=== PATIENT | male | born 1980 | race Caucasian/White ===

== ENCOUNTER 2025-04-03 20:42 | Emergency (ER) | payer OTHER, SELFPAY ==
[2025-04-03 20:44] VITALS: BP 174/104
[2025-04-03 21:08] LABS: Urine Character Clear (Clear)
[2025-04-03 21:20] LABS: Hematocrit 40.8 % (39.0-52.0); Hemoglobin 14.0 g/dL (13.0-18.0); Mean Corp Hgb Conc. 34.3 g/dL (33.0-37.0); Mean Corpuscular Volume 81.6 fL (80.0-94.0); Nucleated Red Blood Cells % 0 % (-); Red Cell Dist. Width 12.3 % (11.5-14.5)
[2025-04-03 21:27] LABS: ALT (SGPT) 34 U/L (0-50); AST (SGOT) 27 U/L (17-59); Albumin 4.8 g/dl (3.5-5.0); Alkaline Phosphatase 97 U/L (38-126); Blood Urea Nitrogen 16 mg/dl (9-20); Calcium 9.6 mg/dl (8.4-10.2); Carbon Dioxide 26 mmol/L (22-30); Chloride 101 mmol/L (98-107); Glucose 119 mg/dl (70-99); Potassium 4.1 mmol/L (3.5-5.1); Sodium 136 mmol/L (135-145); Total Protein 7.5 g/dl (6.3-8.2); eGFR > 60.00
[2025-04-03 21:55] LABS: Platelet Count 254 10^3/uL (130-400)
[2025-04-03 22:16] LABS: Urine Red Blood Cell 0-2 /HPF (0-2); Urine Squamous Cell 0-2 /LPF (Few); Urine White Cell 0-2 /HPF (0-5)
[2025-04-03 22:51] VITALS: BP 145/79; BMI 43.9
[2025-04-03] MEDS: TORADOL 15 MG IM (23:59)
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
== END 2025-04-04 01:19 | disposition home or self-care (01) ==
LOC: EMR 20:42
PROVIDERS: Emergency Medicine; EMERGENCY PHYSICIAN Student in an Organized Health Care Education/Training Program; FAMILY PHYSICIAN Family Medicine
DX: N13.2 Hydronephrosis with renal and ureteral calculous obstruction (principal); K43.9 Ventral hernia without obstruction or gangrene; R03.0 Elevated blood-pressure reading, without diagnosis of hypertension; Z96.649 Presence of unspecified artificial hip joint
CPT/HCPCS: 99284; 96372; 74176; 80053; 81003; 81015; 85025; 87086

== ENCOUNTER 2025-04-10 23:51 | Emergency (ER) | payer OTHER, SELFPAY ==
[2025-04-11 00:01] VITALS: BP 145/109
[2025-04-11] MEDS: NSS 1000 IV (01:46)
[2025-04-11] MEDS: TORADOL 15 MG IV (01:52)
[2025-04-11 02:02] LABS: Hematocrit 40.3 % (39.0-52.0); Hemoglobin 14.0 g/dL (13.0-18.0); Mean Corp Hgb Conc. 34.7 g/dL (33.0-37.0); Mean Corpuscular Volume 80.1 fL (80.0-94.0); Nucleated Red Blood Cells % 0 % (-); Platelet Count 284 10^3/uL (130-400); Red Cell Dist. Width 12.3 % (11.5-14.5); Urine Character Clear (Clear)
[2025-04-11 02:16] LABS: ALT (SGPT) 37 U/L (0-50); AST (SGOT) 30 U/L (17-59); Albumin 4.8 g/dl (3.5-5.0); Alkaline Phosphatase 103 U/L (38-126); Blood Urea Nitrogen 17 mg/dl (9-20); Calcium 9.5 mg/dl (8.4-10.2); Carbon Dioxide 27 mmol/L (22-30); Chloride 101 mmol/L (98-107); Glucose 121 mg/dl (70-99); Potassium 3.6 mmol/L (3.5-5.1); Sodium 137 mmol/L (135-145); Total Protein 7.3 g/dl (6.3-8.2); eGFR > 60.00
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
[2025-04-11] MEDS: MORPHINE SULFATE 4 MG IV (02:54)
[2025-04-11] MEDS: FLOMAX 0.4 MG PO (03:16)
[2025-04-11 03:34] VITALS: BP 180/78
[2025-04-11 03:55] LABS: Urine Red Blood Cell 0-2 /HPF (0-2); Urine Squamous Cell 0-2 /LPF (Few); Urine White Cell 0-2 /HPF (0-5)
== END 2025-04-11 03:37 | disposition home or self-care (01) ==
LOC: EMR 23:51
PROVIDERS: EMERGENCY PHYSICIAN Student in an Organized Health Care Education/Training Program; FAMILY PHYSICIAN Family Medicine
DX: N13.2 Hydronephrosis with renal and ureteral calculous obstruction (principal)
CPT/HCPCS: 96374; 96375; 99284; 74176; 80053; 81003; 81015; 85025

== ENCOUNTER 2025-04-17 17:21 | Emergency (ER) | payer OTHER, SELFPAY ==
[2025-04-17 17:29] VITALS: BP 134/86
[2025-04-17 18:03] LABS: Hematocrit 38.1 % (39.0-52.0); Hemoglobin 13.3 g/dL (13.0-18.0); Mean Corp Hgb Conc. 34.9 g/dL (33.0-37.0); Mean Corpuscular Volume 82.6 fL (80.0-94.0); Nucleated Red Blood Cells % 0 % (-); Platelet Count 250 10^3/uL (130-400); Red Cell Dist. Width 12.2 % (11.5-14.5)
[2025-04-17 18:18] LABS: ALT (SGPT) 33 U/L (0-50); AST (SGOT) 30 U/L (17-59); Albumin 4.3 g/dl (3.5-5.0); Alkaline Phosphatase 78 U/L (38-126); Blood Urea Nitrogen 12 mg/dl (9-20); Calcium 8.8 mg/dl (8.4-10.2); Carbon Dioxide 29 mmol/L (22-30); Chloride 102 mmol/L (98-107); Glucose 112 mg/dl (70-99); Potassium 3.8 mmol/L (3.5-5.1); Sodium 136 mmol/L (135-145); Total Protein 6.8 g/dl (6.3-8.2); eGFR > 60.00
[2025-04-17 18:28] LABS: Urine Character Bloody (Clear)
[2025-04-17 19:42] LABS: Urine Red Blood Cell >100 /HPF (0-2); Urine Squamous Cell 0-2 /LPF (Few)
[2025-04-17] MEDS: DILAUDID 0.5 MG IV (20:05)
[2025-04-17] MEDS: NSS 1000 IV (20:06)
[2025-04-17] MEDS: ZOFRAN 4 MG IV (20:06)
--- NOTE | 2025-04-17 21:49 | ED.GENMED ---
History of Present Illness
General
Chief Complaint: Post Operative Problem(s)
Source: patient
Exam Limitations: none
Time Seen by Provider: 04/17/25 19:51
Nursing documentation reviewed up to this point in time: agreed with
History of Present Illness
History of Present Illness:
Patient to ED with worsening flank pain, hematuria. He had a stent placed yesterday at [facility] for obstructing stone. States pain today was worse than the pain prior to stent placement. He was advised by his urologist to come to ED. TO ED
accompanied by .
Past History
Past History
ED Past Medical History: HTN and Psychiatric (Bipolar)
Review of Systems
Review of Systems
Allergies reviewed?: Yes
All Other Systems: ROS reviewed and negative except as documented in HPI and ROS
Constitutional: Reports no symptoms
EENT: Reports no symptoms
Respiratory: Reports no symptoms
Cardiac: Reports no symptoms
ABD/GI: Reports no symptoms
: Reports flank pain (right flank pain, hematuria)
Musculoskeletal: Reports no symptoms
Skin: Reports no symptoms
Neurological: Reports no symptoms
Psychiatric: Reports no symptoms
Phy Exam
General Physical Exam
General Presentation: moderate distress
General age: appears stated age
General Skin: warm and dry
General Habitus: normal
General Mental: alert
Genitourinary Exam Male
Exam Male: other (Urine now beginning to clear. [place] tinge urine. No clots noted. Bladder scan completed, no retention)
Musculoskeletal Exam
Musculoskeletal Exam: full ROM and neuro vasc intact
Skin Exam
Skin Exam: normal color, warm/dry and no rash
Psychiatric Exam
Psychiatric Exam: normal mood/affect
Course
Orders/Labs/Results
Orders:
Orders
04/17/25 17:51
Complete Blood Count/With Diff Urgent
Comprehensive Metabolic Panel Urgent
Urinalysis Reflex To Culture Urgent
Date Specimen was Collected: 04/17/25
Time Specimen was Collected: 17:34
Urine Microscopic Reflex Cult Urgent
Urine Culture Urgent
JONNY Source: U
Specimen Description:
Date Specimen was Collected: 04/17/25
Time Specimen was Collected: 17:34
04/17/25 19:57
0.9% Sodium Chloride 1000 ml [Nss] 1,000 ml IV BOLUS
HYDROmorphone [Dilaudid] 0.5 mg IV NOW STA
Ondansetron Injectable [Zofran] 4 mg IV NOW STA
04/17/25 19:58
CT Abd/pel Without Iv Or Oral Urgent
Comment:
Reason For Exam: R flank pain, hematuria s/p stent placement
04/17/25 21:43
Oxycodone [Roxicodone Oral Solution] 5 mg PO NOW STA
Abnormal Lab Results
04/17/25
17:51
RBC 4.61 L 10^6/uL
(4.70-6.10)
Hct 38.1 L %
(39.0-52.0)
Glucose 112 H mg/dl
(70-99)
Ur Occult Blood Reflex 4+ A
(Negative)
Urine Nitrite (Reflex) Positive A
(Negative)
Urine Bilirubin 1+ A
(Negative)
Leukocyte Esterase Rfl 2+ A
(Negative)
Urine RBC >100 A /HPF
(0-2)
Urine Bacteria (Reflex) Few A
(Negative)
Urine Albumin (Reflex) 4+ A
(Neg - Trace)
04/17/25 17:51
04/17/25 17:51
Vital Signs
Initial and Last Documented VS:
Initial Vital Signs
Temp Pulse Resp BP Pulse Ox
98.5 F 79 16 134/86 96
04/17/25 17:29 04/17/25 17:29 04/17/25 17:29 04/17/25 17:29 04/17/25 17:29
Last Documented Vital Signs
Temp Pulse Resp BP Pulse Ox
98.5 F 79 18 136/78 96
04/17/25 17:29 04/17/25 17:29 04/17/25 18:00 04/17/25 22:01 04/17/25 21:51
*Radiology
Radiology exam reviewed: radiology read reviewed
*Pulse Oximetry
SaO2: 96
Oxygen Mode of Delivery: Room air
Patient hypoxic: no
*Critical Care Note
Total Time (30-74mins, 75-104mins- exclusive of procedures): Not Applicable
Update Note
Update Note:
Patient to ED with report of right flank pain, hematuria. He had a stent placed yesterday for obstructing stone. VSS, he remains afebrile. Labs reviewed, stable. Ct report reviewed with him. No concerning findings noted. Stent in place. Urine
is now clearing. No clots noted Will discharge home. He will follow up with urology in AM. Given instructions on s/s to return toED and [facility] [place]
ED Attending Note
-
Portions of this chart may have been created with voice recognition software.� Occasional wrong word or��sound alike� substitutions may have occurred due to the inherent limitations of voice recognition software.
Discharge Plan
Departure
Patient Disposition: Home (Routine Discharge)
Date of Disposition: 04/17/25
Time of Disposition: 21:43
Patient with high blood pressure during this ER visit?: No
Condition: Good
Covid-19: Not Applicable
Discharge Problem:
Hematuria, Post-operative pain
Instructions: Postoperative Pain (DC), Blood in the urine (hematuria) - ED (DC)
Prescriptions:
New
oxycodone 5 mg capsule
5 mg PO Q4H PRN (Reason: Pain) Qty: 12 0RF
No Action
oxycodone-acetaminophen [Percocet] 5-325 mg Tablet
1 tab PO Q4HPRN PRN (Reason: pain) Qty: 10 0RF
tamsulosin [Flomax] 0.4 mg Capsule
0.4 mg PO DAILY Qty: 5 0RF
diclofenac sodium 75 mg tablet,delayed release (DR/EC)
75 mg PO BID Qty: 10 0RF
tamsulosin [Flomax] 0.4 mg Capsule
0.4 mg PO DAILY 7 Days Qty: 7 0RF
ibuprofen 600 mg tablet
600 mg PO Q8H PRN (Reason: Pain) Qty: 20 0RF
oxycodone-acetaminophen [Percocet] 5-325 mg tablet
1 tab PO Q8H PRN (Reason: Pain) Qty: 10 0RF
Referrals:
Grey George DO [Family Provider, Family Practice]
Activity Restrictions/Additional Instructions:
Follow up with your urologist in the AM. Return to the emergency department immediately for any difficulty urinating.
Interventions
Interventions:
*Risk Screen - Suicide Last Done: 04/17/25 17:29
*General Assessment Last Done: 04/17/25 17:29
*Neglect/Abuse Screening Last Done: 04/17/25 17:29
*ED- Fall Risk Assessment Last Done: 04/17/25 22:02
*ED COVID-19 Vaccine History Last Done: 04/17/25 22:02
*ED Influenza Vaccine History Last Done: 04/17/25 22:02
*Nursing Disposition Last Done: 04/17/25 22:02
QO-Enujbv-Oksxammpbg Assessment Last Done: 04/17/25 21:42
ED-Male Genitourinary Assessment Last Done: 04/17/25 21:42
ED-Skin Assessment Last Done: 04/17/25 21:42
Discharge Date and Time
Discharge Date/Time: 04/17/25 22:03
Print Language: GEORGIAN
[2025-04-17] MEDS: ROXICODONE ORAL SOLUTION 5 MG PO (21:55)
[2025-04-17 22:01] VITALS: BP 136/78
== END 2025-04-17 22:03 | disposition home or self-care (01) ==
LOC: EMR 17:21
PROVIDERS: EMERGENCY PHYSICIAN Emergency Medicine; FAMILY PHYSICIAN Family Medicine
DX: R31.9 Hematuria, unspecified (principal); G89.18 Other acute postprocedural pain; I10 Essential (primary) hypertension; F31.9 Bipolar disorder, unspecified
CPT/HCPCS: 99284; 96374; 96375; 96361; 74176; 80053; 81003; 81015; 85025; 87086

== ENCOUNTER 2025-04-20 11:49 | Emergency (ER) | payer OTHER, SELFPAY ==
[2025-04-20 11:57] VITALS: BP 167/120
[2025-04-20 13:01] LABS: Urine Character Slightly Cloudy (Clear)
[2025-04-20 13:08] LABS: Urine Red Blood Cell 80-90 /HPF (0-2); Urine Squamous Cell 0-2 /LPF (Few); Urine White Cell 0-2 /HPF (0-5)
--- NOTE | 2025-04-20 13:44 | ED.GENMED ---
History of Present Illness
General
Chief Complaint: Flank Pain
Source: patient
Exam Limitations: none
Time Seen by Provider: 04/20/25 13:13
History of Present Illness
History of Present Illness:
44-year-old male presents complaining of persistent right flank pain. He was here 3 days ago for the same. A week prior to that he had a stent placed in his right ureter after lithotripsy by Dr. Griffin at [facility]. He this is his second visit
since the surgery with increased pain. He had a CT scan performed last visit which showed everything was in the right position. No infection in the urine. He denies fevers nausea or vomiting. He does note dysuria. No other complaints at this
time
Past History
Past History
ED Past Medical History: HTN and Psychiatric (Bipolar)
Phy Exam
Physical Exam
Physical Exam:
General: Well-appearing male no acute respiratory distress
HEENT: Normal cephalic atraumatic
Heart: Regular rate and rhythm lungs: Clear no wheeze
Abdomen is soft tender to the right flank no guarding nondistended
Extremities: No cyanosis
Skin is warm no rash
Course
Orders/Labs/Results
Orders:
Orders
04/20/25 12:11
Urinalysis Reflex To Culture Urgent
Date Specimen was Collected: 04/20/25
Time Specimen was Collected: 12:00
Urine Microscopic Reflex Cult Urgent
Urine Culture Urgent
JONNY Source: U
Specimen Description:
Date Specimen was Collected: 04/20/25
Time Specimen was Collected: 12:00
04/20/25 13:23
0.9% Sodium Chloride 1000 ml [Nss] 1,000 ml IV BOLUS
HYDROmorphone [Dilaudid] 0.5 mg IV NOW STA
Ketorolac [Toradol] 15 mg IV NOW STA
04/20/25 14:07
Complete Blood Count/With Diff Urgent
Comprehensive Metabolic Panel Urgent
Abnormal Lab Results
04/20/25 04/20/25
12:11 14:07
Absolute Lymphs (auto) 1.1 L 10^3/uL
(1.2-3.4)
Neutrophils % 76.1 H %
(42.2-75.2)
Lymphocytes % 15.1 L %
(20.5-51.1)
Glucose 111 H mg/dl
(70-99)
Urine Ketones 3+ A
(Negative)
Ur Occult Blood Reflex 4+ A
(Negative)
Urine Nitrite (Reflex) Positive A
(Negative)
Urine Bilirubin 2+ A
(Negative)
Urine Urobilinogen 2+ A
(Neg - 1+)
Leukocyte Esterase Rfl 2+ A
(Negative)
Urine RBC 80-90 A /HPF
(0-2)
Urine Bacteria (Reflex) Few A
(Negative)
Urine Albumin (Reflex) 4+ A
(Neg - Trace)
04/20/25 14:07
04/20/25 14:07
Vital Signs
Initial and Last Documented VS:
Initial Vital Signs
Temp Pulse Resp BP Pulse Ox
98.3 F 117 17 167/120 99
04/20/25 11:57 04/20/25 11:57 04/20/25 11:57 04/20/25 11:57 04/20/25 11:57
Last Documented Vital Signs
Temp Pulse Resp BP Pulse Ox
98.3 F 100 18 157/103 95
04/20/25 11:57 04/20/25 16:12 04/20/25 16:12 04/20/25 16:12 04/20/25 16:12
MDM/Problems Addressed
Differential Diagnosis Includes:
Persistent right flank pain known stent in the right ureter. Reviewed CT scan from 3 days ago which showed no acute findings. Patient ran out of pain medicine that was prescribed from here this morning. Recheck urine today. Recheck labs hydrate
and treat symptoms.
*Pulse Oximetry
SaO2: 99
Oxygen Mode of Delivery: Room air
Patient hypoxic: no
*Critical Care Note
Total Time (30-74mins, 75-104mins- exclusive of procedures): Not Applicable
Update Note
Update Note:
Labs reviewed without significant finding. Patient is pain is more tolerable. Will send patient home with another prescription for pain medicine but strongly advised that he follow-up with his urologist for further evaluation I believe the pain is
from the stent in place.
ED Attending Note
-
Portions of this chart may have been created with voice recognition software.� Occasional wrong word or��sound alike� substitutions may have occurred due to the inherent limitations of voice recognition software.
Discharge Plan
Departure
Patient Disposition: Home (Routine Discharge)
Date of Disposition: 04/20/25
Time of Disposition: 16:21
Patient with high blood pressure during this ER visit?: No
Discharge Problem:
Acute flank pain
Prescriptions:
New
oxycodone-acetaminophen [Percocet] 5-325 mg tablet
1 tab PO TID PRN (Reason: Pain) Qty: 10 0RF
No Action
oxycodone-acetaminophen [Percocet] 5-325 mg Tablet
1 tab PO Q4HPRN PRN (Reason: pain) Qty: 10 0RF
tamsulosin [Flomax] 0.4 mg Capsule
0.4 mg PO DAILY Qty: 5 0RF
diclofenac sodium 75 mg tablet,delayed release (DR/EC)
75 mg PO BID Qty: 10 0RF
tamsulosin [Flomax] 0.4 mg Capsule
0.4 mg PO DAILY 7 Days Qty: 7 0RF
ibuprofen 600 mg tablet
600 mg PO Q8H PRN (Reason: Pain) Qty: 20 0RF
oxycodone-acetaminophen [Percocet] 5-325 mg tablet
1 tab PO Q8H PRN (Reason: Pain) Qty: 10 0RF
oxycodone 5 mg capsule
5 mg PO Q4H PRN (Reason: Pain) Qty: 12 0RF
Referrals:
Grey George DO [Family Provider, Family Practice]
Activity Restrictions/Additional Instructions:
Please follow-up with urologist. Call them tomorrow morning for further recommendations.
Interventions
Interventions:
*Risk Screen - Suicide Last Done: 04/20/25 11:59
*General Assessment Last Done: 04/20/25 11:59
*Neglect/Abuse Screening Last Done: 04/20/25 11:59
*ED- Fall Risk Assessment Last Done: 04/20/25 13:49
*ED COVID-19 Vaccine History Last Done: 04/20/25 11:59
*ED Influenza Vaccine History Last Done: 04/20/25 11:59
PU-Sosoes-Pmsawcqnvp Assessment Last Done: 04/20/25 16:10
ED-Male Genitourinary Assessment Last Done: 04/20/25 16:10
Discharge Date and Time
Print Language: VINCENTIAN
[2025-04-20 13:47] VITALS: BMI 42.6
[2025-04-20] MEDS: DILAUDID 0.5 MG IV (14:02)
[2025-04-20] MEDS: NSS 1000 IV (14:03)
[2025-04-20] MEDS: TORADOL 15 MG IV (14:03)
[2025-04-20 14:17] LABS: Hematocrit 40.4 % (39.0-52.0); Hemoglobin 14.0 g/dL (13.0-18.0); Mean Corp Hgb Conc. 34.7 g/dL (33.0-37.0); Mean Corpuscular Volume 80.8 fL (80.0-94.0); Nucleated Red Blood Cells % 0 % (-); Platelet Count 255 10^3/uL (130-400); Red Cell Dist. Width 12.3 % (11.5-14.5)
[2025-04-20 14:30] LABS: ALT (SGPT) 38 U/L (0-50); AST (SGOT) 32 U/L (17-59); Albumin 4.6 g/dl (3.5-5.0); Alkaline Phosphatase 92 U/L (38-126); Blood Urea Nitrogen 12 mg/dl (9-20); Calcium 9.3 mg/dl (8.4-10.2); Carbon Dioxide 28 mmol/L (22-30); Chloride 104 mmol/L (98-107); Estimated Creatinine Clearance > 125 ml/min; Glucose 111 mg/dl (70-99); Potassium 3.6 mmol/L (3.5-5.1); Sodium 140 mmol/L (135-145); Total Protein 7.3 g/dl (6.3-8.2); eGFR > 60.00
[2025-04-20 16:12] VITALS: BP 157/103
== END 2025-04-20 16:27 | disposition home or self-care (01) ==
LOC: EMR 11:49
PROVIDERS: Student in an Organized Health Care Education/Training Program; EMERGENCY PHYSICIAN Emergency Medicine; FAMILY PHYSICIAN Family Medicine
DX: R10.9 Unspecified abdominal pain (principal); I10 Essential (primary) hypertension; F31.9 Bipolar disorder, unspecified
CPT/HCPCS: 99283; 80053; 81003; 81015; 85025; 87086